=== PATIENT | female | born 1975 | race Caucasian/White ===

== ENCOUNTER → 2016-03-26 | Outpatient (CLI) | payer OTHER | LOC: YCFC.O 10:06 | PROVIDERS: ATTEND Nurse Practitioner Family | DX: R53.83 Other fatigue (principal); E78.2 Mixed hyperlipidemia; I10 Essential (primary) hypertension; E03.9 Hypothyroidism, unspecified; E66.9 Obesity, unspecified ==

== ENCOUNTER → 2016-05-04 | Outpatient (CLI) | payer OTHER | END | disposition home or self-care (01) | LOC: YCFC.O 08:14 | PROVIDERS: ATTEND Nurse Practitioner Family | DX: E03.9 Hypothyroidism, unspecified (principal) ==

== ENCOUNTER → 2016-09-12 | Outpatient (CLI) | payer OTHER ==
--- NOTE | 2016-09-13 08:13 | CT ---
EXAM DESCRIPTION: CT ABDOMEN AND PELVIS WITH CONTRAST CLINICAL HISTORY: LLQ PAIN COMPARISON: None Available. TECHNIQUE: CT of the abdomen and pelvis are performed during IV bolus administration of nonionic contrast. Oral contrast was not utilized. This exam was performed according to our departmental dose-optimization program, which includes automated exposure control, adjustment of the mA and/or kV according to patient size and/or use of iterative reconstruction technique. FINDINGS: The lung bases are clear. Overall image quality is significantly limited by the patient's large body habitus. Surgical clips on either side of the pelvis suggest previous hysterectomy and pelvic dissection. In the midline between the umbilicus and the symphysis suggesting fat-containing ventral hernia that has a small amount of soft tissue density at the anterior left aspect of the hernia that does not appear to represent bowel. A small seroma or hematoma would be a consideration. Small soft tissue mass is not completely excluded. Mesenteric inflammation surrounding the mid sigmoid colon consistent with a localized colitis or diverticulitis is suspected. This lies in the anterior mid left pelvis. This likely accounts for the patient's left lower quadrant pelvic pain. The upper abdomen demonstrates mild splenomegaly and normal-appearing liver with a normally distended gallbladder and normal biliary ductal system. The pancreas and adrenal glands are normal. The kidneys normally enhance and function without cyst or mass or obstruction retroperitoneum is unremarkable. No pelvic fluid collections within the hollow of the pelvic cavity is noted in the vaginal cuff and adnexal regions are unremarkable except for the left lower quadrant inflammatory changes associated with a short segment of left colon. Significant diverticulosis elsewhere within the colon is not apparent and distinct or definite diverticula at the level of inflammation is not apparent. A drainable fluid collection in the left lower quadrant is not apparent. The bony structures are unremarkable. IMPRESSION: 1. Localized mesenteric colic and pericolic inflammatory process in the left mid pelvis surrounding a short segment of thickened colon consistent with localized colitis or diverticulitis although very few diverticula are identified involving the left colon. A drainable fluid collection or abscess is not apparent. 2. Prior hysterectomy and apparent prior radical pelvic dissection without pelvic fluid collection or adnexal mass. 3. Fat-containing ventral hernia in the midline into the left of midline between the umbilicus and symphysis with either a small amount of loculated fluid or an associated soft tissue mass within or adjacent to the hernia sac that does not represent bowel. 4. Mild splenomegaly and clear lung bases. 5. No evidence of bowel obstruction or dilation proximal to the inflammatory changes or the hernia sac are noted. Electronically signed by: Dalton Mccartney MD 09/13/2016 8:12 AM CDT
== END | disposition home or self-care (01) ==
LOC: YCFC.O 10:04
PROVIDERS: ATTEND Nurse Practitioner Family
DX: R10.32 Left lower quadrant pain (principal)

== ENCOUNTER → 2016-09-20 | Outpatient (CLI) | payer OTHER ==
--- NOTE | 2016-09-20 13:33 | MAM ---
EXAM DESCRIPTION: 3D Screening BILATERAL CLINICAL HISTORY: 41 yearsFemaleSCREENING. Postmenopausal. No complaints.. COMPARISON: Baseline study at this facility. No prior reports available. TECHNIQUE: Bilateral CC and MLO projection full-field images, 3-D tomosynthesis digital mammographic technique. Also bilateral synthesized CC/ MLO full-field images. CAD not utilized. FINDINGS: The breast parenchymal density pattern is: Scattered areas of fibroglandular density. No skin thickening or nipple retraction . Approximately 3 well-circumscribed densities in the lateral middle third of the right breast approximately 3 cm from the skin surface. Same density as the surrounding fibroglandular tissues. Volume is approximately 11 x 9 x 7 mm. No associated calcifications. These are most likely cysts or intramammary lymph nodes. Skin calcifications on the medial right breast. Most likely cysts or intramammary lymph nodes. No focal, stellate mass or density, focal asymmetry , and no suspicious microcalcifications bilaterally. IMPRESSION: BI-RADS CATEGORY: 2 - BENIGN FINDINGS. FOLLOW UP: Routine digital bilateral screening, one year interval from September 2016. Written communication explaining the findings and follow-up, will be mailed to the patient and referring health care provider. According to the [employer], yearly mammograms are recommended starting at age 40 and continuing as long as a woman is in good health. Any breast change noted on a breast self-exam should be reported promptly to the patient's healthcare provider. Breast MRI is recommended for women with an approximately 20-25% or greater lifetime risk of breast cancer, including women with a strong family history of breast or ovarian cancer and women who have been treated for Hodgkin's disease. A negative mammographic report should not delay tissue diagnosis in patients with significant clinical history or physical findings. Extremely dense breast tissue limits the sensitivity of digital mammography. Electronically signed by: Oswaldo Bates MD 09/20/2016 1:32 PM CDT Workstation: [id number]
== END ==
LOC: MAMMO 08:00
PROVIDERS: ATTEND Nurse Practitioner Family
DX: Z12.31 Encounter for screening mammogram for malignant neoplasm of breast (principal)

== ENCOUNTER → 2017-06-09 | Outpatient (CLI) | payer OTHER | END | disposition home or self-care (01) | LOC: LAB.O 08:47 | PROVIDERS: ATTEND Nurse Practitioner Family | DX: E03.9 Hypothyroidism, unspecified (principal) ==

== ENCOUNTER → 2017-10-31 | Outpatient (CLI) | payer OTHER ==
--- NOTE | 2017-11-01 09:25 | MAM ---
EXAM DESCRIPTION: 3D Screening BILATERAL : Digital Mammography. CLINICAL HISTORY: 42 years Female ANNUAL SCREENING . No personal history or family history of breast cancer. Childbirth. Postmenopausal. No HRT. Lifetime risk of developing breast cancer (Tyrer-Cuzick model) is 9.7 %. COMPARISON: Bilateral screening digital breast tomosynthesis 09/20/2016.. TECHNIQUE: Bilateral CC and MLO projection full-field images, Digital tomosynthesis mammographic technique. Bilateral digital 2-D full-field MLO images. CAD not utilized. FINDINGS: The breast parenchymal density pattern is: Scattered areas of fibroglandular density. No skin thickening or nipple retraction. Again noted are intramammary nodules in the central right breast with a benign appearance. Right axillary lymph node No new focal, stellate mass or density, focal asymmetry , and no suspicious microcalcifications bilaterally. Stable mammograms compared to prior study. IMPRESSION: Benign exam BIRAD CATEGORY: 2 BENIGN FINDINGS RECOMMENDATIONS: FOLLOW UP: Routine digital bilateral screening, one year interval from October 2017. Written communication explaining the IMPRESSION and follow-up, will be mailed to the patient and referring health care provider. According to the [employer], yearly mammograms are recommended starting at age 40 and continuing as long as a woman is in good health. Any breast change noted on a breast self-exam should be reported promptly to the patient's healthcare provider. Breast MRI is recommended for women with an approximately 20-25% or greater lifetime risk of breast cancer, including women with a strong family history of breast or ovarian cancer and women who have been treated for Hodgkin's disease. A negative mammographic report should not delay tissue diagnosis in patients with significant clinical history or physical findings. Extremely dense breast tissue limits the sensitivity of digital mammography. Electronically signed by: Oswaldo Bates MD 11/01/2017 9:24 AM CDT
== END ==
LOC: MAMMO 08:00
PROVIDERS: ATTEND Nurse Practitioner Family
DX: Z12.31 Encounter for screening mammogram for malignant neoplasm of breast (principal)

== ENCOUNTER → 2018-04-24 | Outpatient (CLI) | payer OTHER | LOC: YCFC.O 08:08 | PROVIDERS: ATTEND Nurse Practitioner Family | DX: E03.9 Hypothyroidism, unspecified (principal) ==

== ENCOUNTER 2018-05-09 21:53 | Emergency (ER) | payer BC, OTHER ==
[2018-05-09 22:11] VITALS: TEMP 98.8; O2SAT 96
[2018-05-09] MEDS ORDERED: ENOXAPARIN SODIUM 100 MG/ML SYG SUBCU ONE (22:24)
--- NOTE | 2018-05-09 22:30 | ED.PDOC ---
History of Present Illness - General Chief Complaint: Lower Extremity Injury Stated Complaint: pain in left groin area Time Seen by Provider: 05/09/18 22:24 Source: patient Exam Limitations: no limitations - History of Present Illness Initial Comments: The patient is a 43-year-old female presenting to the emergency room secondary to left medial thigh pain starting about one day ago. No shortness of breath. She does not remember straining it or injuring it. It is not particularly worse with any movement. No visible skin changes and no swelling. She does have a history of having had a DVT and pulmonary embolus from the leg. That was many years ago however. She is not currently on any blood thinners. She is not . Timing/Duration: 24 hours Severity: moderate Improving Factors: nothing Worsening Factors: nothing Associated Symptoms: denies symptoms Allergies/Adverse Reactions: Allergies NO KNOWN ALLERGY Allergy (Unverified 01/13/14 15:54) Home Medications: Ambulatory Orders Codeine Sulfate 30 mg PO Q6HR #30 ml 01/13/14 Cyclobenzaprine Tab (ER Disp) [Flexeril Tab (ER Dispense)] 10 mg PO Q8HR #30 tab 01/13/14 Fluoxetine HCl [Prozac] 20 mg PO DAILY 01/13/14 Ibuprofen 600 mg PO Q6HR #30 tab 01/13/14 Levothyroxine Sodium [Synthroid] 0.088 mg PO DAILY 01/13/14 Review of Systems - Review of Systems Constitutional: States: no symptoms reported EENTM: States: no symptoms reported Respiratory: States: no symptoms reported Cardiology: States: no symptoms reported Gastrointestinal/Abdominal: States: no symptoms reported Genitourinary: States: no symptoms reported Musculoskeletal: States: see HPI Skin: States: no symptoms reported Neurological: States: no symptoms reported Endocrine: States: no symptoms reported All other Systems: No Change from Baseline Past Medical History (General) - Patient Medical History Hx Seizures: No Hx Dementia: No Hx Asthma: No Hx of COPD: No Hx Cardiac Disorders: No Hx Congestive Heart Failure: No Hx Pacemaker: No Hx Hypertension: No Hx Thyroid Disease: Yes Hx Diabetes: No Hx Gastroesophageal Reflux: No Hx Renal Disease: No Hx Cancer: No Hx Hepatitis C: No Surgical History: Hysterectomy, other - Vaccination History Hx Tetanus, Diphtheria Vaccination: No Hx Influenza Vaccination: Yes Hx Pneumococcal Vaccination: No - Social History Hx Tobacco Use: Yes Hx Alcohol Use: No Family Medical History - Family History Mother Living Status: Still Living Hx Family Hypertension: Yes Hx Cardiac Disease: Yes Physical Exam - Physical Exam General Appearance: Alert, Comfortable, No apparent distress Eye Exam: bilateral normal Ears, Nose, Throat: hearing grossly normal Neck: full range of motion Respiratory: no respiratory distress, no accessory muscle use Cardiovascular/Chest: no edema Peripheral Pulses: dorsalis pedis,left: 2+ Gastrointestinal/Abdominal: other - obese Rectal Exam: deferred Back Exam: normal inspection, no CVA tenderness Extremity: normal range of motion, normal inspection, no pedal edema, no calf tenderness, normal capillary refill, other - discomfort palpation to the medial thigh of the left leg Neurologic: shactor II-XII nml as tested, alert, normal mood/affect, oriented x 3 Skin Exam: normal color Comments: Vital Signs - 24 hr 05/09/18 22:06 Temperature 98.8 F Pulse Rate [ 85 left] Respiratory 18 Rate Blood Pressure 160/84 [left] O2 Sat by Pulse 96 Oximetry Progress - Progress Progress: 05/09/18 22:30 the patient is a 43-year-old female presenting to emergency room with left medial thigh pain of a fairly short duration. Given the history of the patient having had a distant DVT and pulmonary embolus, and the current lack of pulmonary symptoms or hypoxia, the patient is going to be treated with a dose of Lovenox here tonight. She is going to return in the morning for bilateral lower extremity venous Dopplers. ER warnings were given for any acute worsening. If she is to be continued on blood thinners long-term she will need to have lab work performed. Departure - Departure Clinical Impression: History of DVT in adulthood Leg pain, medial Qualifiers: Laterality: left Qualified Code(s): M79.605 - Pain in left leg Disposition: Discharge to Home or Self Care Condition: Fair Departure Forms: ED Discharge - Pt. Copy, Patient Portal Self Enrollment Diet: regular diet Activity: increase activity as tolerated Home Medications: Ambulatory Orders Codeine Sulfate 30 mg PO Q6HR #30 ml 01/13/14 Cyclobenzaprine Tab (ER Disp) [Flexeril Tab (ER Dispense)] 10 mg PO Q8HR #30 tab 01/13/14 Fluoxetine HCl [Prozac] 20 mg PO DAILY 01/13/14 Ibuprofen 600 mg PO Q6HR #30 tab 01/13/14 Levothyroxine Sodium [Synthroid] 0.088 mg PO DAILY 01/13/14 Additional Instructions: the patient is a 43-year-old female presenting to emergency room with left medial thigh pain of a fairly short duration. Given the history of the patient having had a distant DVT and pulmonary embolus, and the current lack of pulmonary symptoms or hypoxia, the patient is going to be treated with a dose of Lovenox here [facility]. She is going to return in the morning for bilateral lower extremity venous Dopplers. ER warnings were given for any acute worsening. If she is to be continued on blood thinners long-term she will need to have lab work performed.
[2018-05-09 22:45] VITALS: BP 168/100
== END 2018-05-09 22:45 | disposition home or self-care (01) ==
LOC: ER 21:53
DX: M79.652 Pain in left thigh (principal); E07.9 Disorder of thyroid, unspecified; Z86.718 Personal history of other venous thrombosis and embolism; Z86.711 Personal history of pulmonary embolism; Z87.891 Personal history of nicotine dependence

== ENCOUNTER → 2018-05-10 | Outpatient (CLI) | payer BC ==
--- NOTE | 2018-05-10 09:37 | US ---
EXAM DESCRIPTION: Venous,Lower Extremity LT: ULTRASOUND. CLINICAL HISTORY: M79.606 COMPARISON: Duplex ultrasound evaluation of the right lower extremity deep venous system. TECHNIQUE: Alves-scale and doppler sonographic evaluation of the deep venous system of the left lower extremity. FINDINGS: Doppler evaluation shows normal color flow and normal phasicity and augmentation of the left common femoral vein, femoral vein, popliteal vein, greater saphenous vein, peroneal, and posterior tibial vein. The left lower extremity deep veins were completely compressible; normal occlusion with transducer pressure. Alves-scale survey showed no echogenic thrombus within these veins. IMPRESSION: 1. Duplex ultrasound evaluation of the left lower extremity deep venous system showing no evidence of thrombosis. Electronically signed by: Oswaldo Bates MD 05/10/2018 9:34 AM NUCLEAR REACTOR ENGINEER
--- NOTE | 2018-05-10 09:43 | US ---
EXAM DESCRIPTION: Venous,Lower Extremity RT: ULTRASOUND. CLINICAL HISTORY: M79.606 COMPARISON: Duplex ultrasound evaluation of the left lower extremity deep venous system. TECHNIQUE: Alves-scale and doppler sonographic evaluation of the deep venous system of the right lower extremity. FINDINGS: Doppler evaluation shows normal color flow and normal phasicity and augmentation of the right common femoral vein, femoral vein, popliteal vein, greater saphenous vein, peroneal, and posterior tibial vein. The right lower extremity deep veins were completely compressible; normal occlusion with transducer pressure. Alves-scale survey showed no echogenic thrombus within these veins. IMPRESSION: 1. Duplex ultrasound evaluation of the right lower extremity deep venous system showing no evidence of thrombosis. Electronically signed by: Oswaldo Bates MD 05/10/2018 9:40 AM GREEN PROMOTIONS SPECIALIST
== END ==
LOC: US 08:13
PROVIDERS: ATTEND Family Medicine
DX: M79.605 Pain in left leg (principal); Z86.718 Personal history of other venous thrombosis and embolism

== ENCOUNTER → 2019-01-11 | Outpatient (CLI) | payer BC ==
--- NOTE | 2019-01-14 16:37 | MAM ---
EXAM DESCRIPTION: 3D Screening BILATERAL : Digital Mammography. CLINICAL HISTORY: 44 years Female ANNUAL SCREENING . No complaints. No personal or family history of breast cancer. Menarche age 12. Childbirth. Postmenopausal 10+ years. No HRT. Lifetime risk of developing breast cancer (Tyrer-Cuzick model)(%): 8.7. COMPARISON: Bilateral screening digital breast tomosynthesis 31 October 2017 and 20 September 2016 TECHNIQUE: Bilateral CC and MLO projection full-field images, digital tomosynthesis mammographic technique. Bilateral digital 2-D full-field MLO images. CAD not available for tomosynthesis or 2-D images. FINDINGS: The breast parenchymal density pattern is: Scattered areas of fibroglandular density. No skin thickening or nipple retraction. Stable nodules lateral mid right breast. Posterior right intramammary lymph node unchanged. Bilateral solitary microcalcifications. Stable nodular density mid left breast. Left breast axillary lymph nodes. No new focal, stellate mass or density, focal asymmetry , and no suspicious microcalcifications bilaterally. Stable mammograms compared to prior study. IMPRESSION: Benign exam. BIRAD CATEGORY: 2 BENIGN FINDINGS. RECOMMENDATIONS: FOLLOW UP: Routine digital bilateral mammographic screening, one year interval from January 2019. Written communication explaining the IMPRESSION and follow-up, will be mailed to the patient and referring health care provider. According to the [employer], yearly mammograms are recommended starting at age 40 and continuing as long as a woman is in good health. Any breast change noted on a breast self-exam should be reported promptly to the patient's healthcare provider. Breast MRI is recommended for women with an approximately 20-25% or greater lifetime risk of breast cancer, including women with a strong family history of breast or ovarian cancer and women who have been treated for Hodgkin's disease. A negative mammographic report should not delay tissue diagnosis in patients with significant clinical history or physical findings. Extremely dense breast tissue limits the sensitivity of digital mammography. Electronically signed by: Oswaldo Bates MD 01/14/2019 4:36 PM FOOD WRITER
== END ==
LOC: MAMMO 08:00
PROVIDERS: ATTEND Family Medicine
DX: Z12.31 Encounter for screening mammogram for malignant neoplasm of breast (principal)

== ENCOUNTER → 2019-03-07 | Outpatient (CLI) | payer OTHER | LOC: YCFC.O 16:52 | PROVIDERS: ATTEND Nurse Practitioner | DX: E03.9 Hypothyroidism, unspecified (principal) ==

== ENCOUNTER → 2019-04-24 | Outpatient (CLI) | payer OTHER | LOC: YCFC.O 14:29 | PROVIDERS: ATTEND Family Medicine | DX: E03.9 Hypothyroidism, unspecified (principal) ==

== ENCOUNTER → 2019-07-09 | Outpatient (CLI) | payer BC, OTHER | LOC: YCFC.O 09:57 | PROVIDERS: ATTEND Nurse Practitioner | DX: E03.9 Hypothyroidism, unspecified (principal) ==

== ENCOUNTER 2019-08-20 00:29 | Emergency (ER) | payer BC ==
--- NOTE | 2019-08-20 00:42 | ED.PDOC ---
History of Present Illness - General Chief Complaint: Chest Pain/[place] Time Seen by Provider: 08/20/19 00:39 Additional Information: Is a 44-year-old female, with history of thyroid disease presenting to the ER because of chest pressure with ideation to the right shoulder that around 5 PM. Patient denies any nausea vomiting or shortness of breath no dizziness lightheadedness no diaphoresis, patient is not had any high problems in the past no fever no chills no sick contacts no travels and no surgeryAnd did not think there was going to last since in the afternoon that it was going to go away on its own so she decided to come in and get herself checked - History of Present Illness Timing/Duration: 4-6 hours Severity/Quality: pressure Location: substernal, shoulder Chest Pain Radiation: shoulders Activities at Onset: none Prior Chest Pain/Cardiac Workup: no prior chest pain Improving Factors: nothing Worsening Factors: nothing Allergies/Adverse Reactions: Allergies NO KNOWN ALLERGY Allergy (Verified 08/20/19 01:01) Home Medications: Ambulatory Orders Levothyroxine Sodium [Synthroid] 25 mcg PO .QOD 08/20/19 Levothyroxine Sodium [Synthroid] 200 mcg PO QAM 08/20/19 Review of Systems - Review of Systems Constitutional: States: no symptoms reported EENTM: States: no symptoms reported Respiratory: States: no symptoms reported Cardiology: States: chest pain Gastrointestinal/Abdominal: States: no symptoms reported Genitourinary: States: no symptoms reported Musculoskeletal: States: no symptoms reported Skin: States: no symptoms reported Neurological: States: no symptoms reported Endocrine: States: no symptoms reported Hematologic/Lymphatic: States: no symptoms reported Past Medical History (General) - Patient Medical History Hx Seizures: No Hx Dementia: No Hx Asthma: No Hx of COPD: No Hx Cardiac Disorders: No Hx Congestive Heart Failure: No Hx Pacemaker: No Hx Hypertension: No Hx Thyroid Disease: Yes Hx Diabetes: No Hx Gastroesophageal Reflux: No Hx Renal Disease: No Hx Cancer: No Hx Hepatitis C: No - Vaccination History Hx Tetanus, Diphtheria Vaccination: No Hx Influenza Vaccination: Yes Hx Pneumococcal Vaccination: No - Social History Hx Tobacco Use: Yes Hx Alcohol Use: No Family Medical History - Family History Mother Living Status: Still Living Hx Family Hypertension: Yes Hx Cardiac Disease: Yes Physical Exam - Physical Exam General Appearance: Well Developed, Well Groomed, Well Hydrated, Well Nourished Eyes, Ears, Nose, Throat Exam: normal ENT inspection, TMs normal Neck: non-tender, full range of motion, supple, normal inspection Respiratory: chest non-tender, lungs clear, normal breath sounds, no respiratory distress, no accessory muscle use Cardiovascular/Chest: normal peripheral pulses, regular rate, rhythm, no edema, no gallop, no JVD Peripheral Pulses: radial,right: 2+, radial,left: 2+ Gastrointestinal/Abdominal: normal bowel sounds, non tender, soft, no organomegaly, no pulsatile mass Extremity: normal range of motion Neurologic: business attorney II-XII nml as tested, no motor/sensory deficits, alert, normal mood/affect, oriented x 3 Skin Exam: normal color Lymphatic: no adenopathy Progress - Progress Progress: 44-year-old female presents to the ER with chest pressure and radiation to the left shoulder, no nausea vomiting no shortness of breath no diaphoresis no dizziness patient does have a history of thyroid disease no history of heart artery disease, I did order cardiac work-up including D-dimers given that the p atient may not have high risk for pulmonary embolism but a sedentary lifestyle, patient CTA did not show evidence of PE, 2 sets troponins are negative, EKGs that did not show any evidence of acute ischemic changes, and TSH was elevated which suggest hypothyroidism so this is something that she will need to follow- up with her primary care physician, patient with a heart score of 2 We will discharge home with follow-up with consumer banker, and instructions to return to the ER immediately if there is any chest pressure, nausea, medical shortness of breath dizziness lightheadedness sensation of fainting digitization the chest without reaction to the left arm right arm both arms neck back or jaw excessive sweating or other concern 08/20/19 03:14 Departure - Departure Clinical Impression: Chest pain Qualifiers: Chest pain type: unspecified Qualified Code(s): R07.9 - Chest pain, unspecified Disposition: Discharge to Home or Self Care Departure Forms: ED Discharge - Pt. Copy, Patient Portal Self Enrollment Instructions: DI for Chest Pain Diet: resume usual diet Referrals: Karine Bravo FNP [Primary Care Provider] - 1-2 Weeks Home Medications: Ambulatory Orders Levothyroxine Sodium [Synthroid] 25 mcg PO .QOD 08/20/19 Levothyroxine Sodium [Synthroid] 200 mcg PO QAM 08/20/19 Additional Instructions: return to the ER immediately if there is any chest pressure, nausea, medical shortness of breath dizziness lightheadedness sensation of fainting digitization the chest without reaction to the left arm right arm both arms neck back or jaw excessive sweating or other concern
[2019-08-20 01:01] VITALS: TEMP 97.9
--- NOTE | 2019-08-20 01:11 | RAD ---
EXAM DESCRIPTION: Chest,1 View CLINICAL HISTORY: 44 years Female, chest pain COMPARISON: None TECHNIQUE: Single AP chest radiograph. FINDINGS: Clear lungs. No pneumothorax or pleural effusion. Normal cardiomediastinal contour. Normal osseous structures. IMPRESSION: 1. No acute cardiopulmonary process. Electronically signed by: Arash Matias MD 08/20/2019 1:10 AM CDT
[2019-08-20] MEDS: ASPIRIN TABLET 325 MG TAB PO ONE (01:14)
--- NOTE | 2019-08-20 02:23 | CT ---
EXAM: CTA Chest HISTORY: rule out pe , Lt Chest wall pain radiating to shoulder, elev D Dimer, hx of PE in the past COMPARISON: Chest one view 08/20/2019 at 12:49 AM TECHNIQUE: Chest CTA axial images acquired with IV contrast. Coronal and sagittal CTA MIPs and MPRs created. Exam performed according to departmental dose-optimization program which includes automated exposure control, adjustment of mA and/or kV according to patient size, and/or use of iterative reconstruction technique. FINDINGS: Inferior-most bilateral lung bases not imaged. Heart size normal. No pericardial effusion. Thoracic aorta unremarkable without evidence of dissection, aneurysm, or atherosclerotic plaque. Limited evaluation for pulmonary embolism due to suboptimal contrast opacification of pulmonary arteries. No pleural effusion or pneumothorax. Central tracheobronchial tree unremarkable. Minimal scattered bilateral lung atelectasis and/or scar. No lung mass, consolidation, or pulmonary edema. Moderate thoracic spine degenerative disease. IMPRESSION: 1. Limited evaluation for pulmonary embolism due to suboptimal contrast opacification of pulmonary arteries. 2. Minimal scattered bilateral lung atelectasis and/or scar. Electronically signed by: Daniel Marrero MD 08/20/2019 2:22 AM CDT
[2019-08-20 03:24] VITALS: BP 141/88; O2SAT 94
== END 2019-08-20 03:25 | disposition home or self-care (01) ==
LOC: ER 00:29
DX: R07.9 Chest pain, unspecified (principal); E03.9 Hypothyroidism, unspecified; F17.200 Nicotine dependence, unspecified, uncomplicated; Z79.899 Other long term (current) drug therapy

== ENCOUNTER → 2019-08-28 | Outpatient (CLI) | payer BC ==
--- NOTE | 2019-08-29 10:08 | US ---
US THYROID CLINICAL STATEMENT:44 years Female hypothyroidism. No prior thyroid surgery or medication. No palpable mass. COMPARISON: None TECHNIQUE: Transcutaneous scanning, grayscale and Doppler modes. FINDINGS: Size right thyroid lobe: 4.7 x 2.0 x 1.4 cm. Heterogeneous Size left thyroid lobe: 4.7 x 1.6 x 1.5 cm. Heterogeneous Size isthmus: 0.65 cm Estimated total number of nodules greater than or equal to 1 cm: 3. No distinct cyst, no large calcifications, no fluid collection. Overlying skin is unremarkable. Nodule 1: Size: 1.9 x 1.2 x 1.1 cm Location: Right Mid Composition: solid or almost completely solid: 2 points Echogenicity: hypoechoic: 2 points Shape: wider than tall: 0 points Margins: smooth: 0 points Echogenic foci: none: 0 points ACR Total Points: 4; ACR TI-RADS risk category: TR4 - moderately suspicious nodule. Nodule 2: Size: 1.4 x 1.4 x 0.8 cm Location: Isthmus right Composition: solid or almost completely solid: 2 points Echogenicity: hypoechoic: 2 points Shape: wider than tall: 0 points Margins: smooth: 0 points Echogenic foci: none: 0 points ACR Total Points: 4; ACR TI-RADS risk category: TR4 - moderately suspicious nodule. Nodule 3: Size: 1.1 x 0.6 X 0.5 cm Location: Left Mid Composition: solid or almost completely solid: 2 points Echogenicity: hypoechoic: 2 points centrally echogenic. Shape: wider than tall: 0 points Margins: smooth: 0 points Echogenic foci: None. ACR Total Points: 4; ACR TI-RADS risk category: TR4 - moderately suspicious nodule. Soft tissue around the thyroid gland is unremarkable. IMPRESSION: 1. Nodule 1: ACR TI-RADS 2017 Category TR4. Recommend: Ultrasound-guided fine needle aspiration. Recommendations based upon [facility] Best Practice recommendations and ACR TI-RADS 2017 guidelines. Please see below*. 2. Nodule 2: ACR TI-RADS 2017 Category TR4. Recommend: Follow-up ultrasound in 1 year. 3. Nodule 3: ACR TI-RADS 2017 Category TR4. Recommend: Follow-up ultrasound in 1 year. 4. Soft tissue within the thyroid gland is unremarkable. *ACR TI-RADS 2017 Recommendations for imaging follow-up of nodules: TR1: No FNA or follow up TR2: No FNA or follow up TR3: FNA if >/= 2.5 cm, follow up if 1.5 - 2.4 cm in 1, 3, and 5 years TR4: FNA if >/= 1.5 cm, follow up if 1.0 - 1.4 cm in 1, 2, 3, and 5 years TR5: FNA if >/= 1.0 cm, follow up if 0.5 - 0.9 cm every year for 5 years ACR TI-RADS recommends that no more than two nodules with the highest ACR TI-RADS total point should be biopsied and no more than four nodules should be followed. These recommendations do not apply to patients with increased risk for thyroid cancer or patients with symptomatic thyroid disease. Electronically signed by: Oswaldo Bates MD 08/29/2019 10:07 AM CDT
== END ==
LOC: RESP 11:00
PROVIDERS: ATTEND Family Medicine
DX: E03.9 Hypothyroidism, unspecified (principal); E04.2 Nontoxic multinodular goiter; R00.2 Palpitations

== ENCOUNTER → 2019-09-09 | Outpatient (CLI) | payer BC ==
--- NOTE | 2019-09-09 10:52 | CT ---
EXAM DESCRIPTION: Abdomen/Pelvis w/Contrast CLINICAL HISTORY: 44 years Female, UNSPECIFIED ABDOMINAL PAIN COMPARISON: CT abdomen and pelvis 09/12/2016 TECHNIQUE: CT of the abdomen and pelvis acquired with IV contrast material. Coronal and sagittal reformations provided. This exam was performed according to our departmental dose-optimization program, which includes automated exposure control, adjustment of the mA and/or kV according to patient size and/or use of iterative reconstruction technique. FINDINGS: Lung bases: Clear. Solid Organs: Relative hypoattenuation of the liver parenchyma. Liver is enlarged measuring up to 19.3 cm the midclavicular line. Unremarkable appearing spleen, pancreas, gallbladder without biliary ductal dilatation, adrenal glands. Normal-appearing kidneys. GI tract: Normal stomach. No small bowel obstruction. There is mucosal thickening and luminal narrowing of the sigmoid colon with surrounding fat stranding. Mild stool in the more proximal colon. Normal appendix. Vascular: Mild atherosclerosis. Musculoskeletal and soft tissues: No acute fracture or aggressive appearing osseous lesion. Small fat-containing umbilical hernia. Small fat-containing hernia containing fluid in the left para midline infraumbilical ventral abdominal wall measuring up to 4.4 cm. Urinary bladder: Decompressed. Uterus and adnexa: Uterus surgically absent. Other: There is ill-defined fluid collection containing foci of air and moderate surrounding inflammation in the lower abdomen/upper pelvis centrally measuring approximately 4.8 cm AP, 2.9 cm transverse, 6.2 cm CC. IMPRESSION: 1. Sigmoid diverticulitis with developing fluid collection/abscess superiorly as described above. No drainable fluid collection at this time. 2. Other findings as above. Electronically signed by: Yonas Monteiro MD 09/09/2019 10:51 AM CDT
== END ==
LOC: YCFC.O 09:32
PROVIDERS: ATTEND Family Medicine
DX: K57.20 Diverticulitis of large intestine with perforation and abscess without bleeding (principal); I70.90 Unspecified atherosclerosis; R16.0 Hepatomegaly, not elsewhere classified; K43.9 Ventral hernia without obstruction or gangrene; K42.9 Umbilical hernia without obstruction or gangrene; Z90.710 Acquired absence of both cervix and uterus

== ENCOUNTER → 2019-09-12 | Outpatient (CLI) | payer BC ==
--- NOTE | 2019-09-12 13:50 | US ---
Thyroid Biopsy, Image-Guided: Biopsy of Thyroid: Ultrasound CLINICAL INFORMATION: 44 years Female. Hypothyroid. Previous thyroid surgery. COMPARISON: Prior thyroid ultrasound on August 27.. TECHNIQUE: Procedure was performed by Dr. Bates. Timeout was performed with patient identifying name, date of , procedure, and side of biopsy to be performed. Explained to the patient with risks and benefits. The patient gave verbal and written consent. Sterile preparation draping. 1% xylocaine dermal anesthetic 9-1 mixture with sodium bicarbonate. Sterile ultrasound guidance. A total of 6 passes posterior right thyroid nodule.; 2 needle samplings with a separate 1.5 inch, 25-gauge needle per sample, and 4 aspirations, with a separate 1.5 inch, 25-gauge needle/10-cc syringe set, per aspiration. Each sample was placed on a separate slide and fixed in 95% alcohol container. 2 aspirated samples were also placed on a separate slide with fixation. Final 2 aspirations were placed into Saccomanno fluid drawn into aspirate needle and rinse injected into Saccomanno container. Specimens to be sent for pathologic examination at remote facility. . Patient tolerated procedure well. Biopsy #: 1 Nodule reference number based on prior diagnostic ultrasound:1 Maximum size: 1.9 cm Location: right; mid ACR TI-RADS risk category: TR4 (4-6 points) Reason for biopsy: meets ACR TI-RADS criteria Complications: None. FINDINGS: Multiple images demonstrate the echogenic needle within the right thyroid solid nodule/mass during sampling and aspirations. IMPRESSION: Successful ultrasound guided fine needle aspiration of right thyroid nodule, by Dr. Bates. ACR TI-RADS Risk Category TR 4 Electronically signed by: Oswaldo Bates MD 09/12/2019 1:49 PM CDT
== END ==
LOC: LAB.O 09:14
PROVIDERS: ATTEND Family Medicine
DX: I49.3 Ventricular premature depolarization (principal); I34.0 Nonrheumatic mitral (valve) insufficiency; I36.1 Nonrheumatic tricuspid (valve) insufficiency; I51.7 Cardiomegaly; E04.1 Nontoxic single thyroid nodule; K57.32 Diverticulitis of large intestine without perforation or abscess without bleeding

== ENCOUNTER → 2019-10-15 | Outpatient (CLI) | payer BC | LOC: LAB.O 14:37 | PROVIDERS: ATTEND Internal Medicine Endocrinology, Diabetes & Metabolism | DX: E03.9 Hypothyroidism, unspecified (principal); E04.2 Nontoxic multinodular goiter ==

== ENCOUNTER → 2019-12-09 | Outpatient (CLI) | payer BC ==
--- NOTE | 2019-12-09 14:02 | RAD ---
EXAM DESCRIPTION: Ribs,Left 3 Views CLINICAL HISTORY: PLEURODYNIA COMPARISON: 08/20/2019. TECHNIQUE: Frontal view of the chest and three views of the left ribs. FINDINGS: No acute displaced left rib fracture or dislocation. The lungs are hypoinflated with mild vascular crowding. No focal consolidation, pleural effusion, or pneumothorax. The heart is at the upper limits of normal in size. IMPRESSION: 1. No acute displaced left rib fracture. Electronically signed by: Best Espinoza DO 12/09/2019 1:59 PM CDT
--- NOTE | 2019-12-09 14:06 | RAD ---
EXAM DESCRIPTION: Scapula,Left CLINICAL HISTORY: 44 years Female, PAIN IN UNSPEC. SHOULDER COMPARISON: None. TECHNIQUE: Two views of the left scapula were obtained. FINDINGS/IMPRESSION: Images of the left scapula demonstrate no acute displaced fracture or dislocation. No radiopaque retained foreign body. Moderate left acromioclavicular joint osteoarthrosis is present with joint space narrowing and marginal osteophytosis. The bone mineralization is preserved. Electronically signed by: Best Espinoza DO 12/09/2019 2:03 PM CDT
== END ==
LOC: YCFC.O 09:56
PROVIDERS: ATTEND Nurse Practitioner
DX: R07.81 Pleurodynia (principal); M19.012 Primary osteoarthritis, left shoulder; M25.712 Osteophyte, left shoulder

== ENCOUNTER → 2020-01-23 | Outpatient (CLI) | payer BC ==
--- NOTE | 2020-01-23 11:26 | US ---
EXAM DESCRIPTION: Gall Bladder: ULTRASOUND. CLINICAL HISTORY: ABD PAIN COMPARISON: CT scan of abdomen and pelvis September 08. TECHNIQUE: Transabdominal scanning: Alves-scale and Doppler modes. Technically difficult study due to patient large body habitus. FINDINGS: Gallbladder: normal size, shape, echogenicity; no intraluminal stones or sludge. No fluid around the gallbladder. No wall thickening. 2.1 mm. Non-tender with transducer pressure. Common bile duct: caliber 5.0 mm within normal limits. Liver: Increased echogenicity; contour liver capsule smooth where seen. No fluid around the liver. Intrahepatic biliary ducts normal caliber. Doppler hepatopedal flow portal vein.. 13 mm caliber slightly enlarged. Long axis right lobe 22 cm. Pancreas: normal size Normal echogenicity. Duct not seen. Aorta: 2.1 cm normal caliber. Right kidney: long axis is text; volume 11.9 cm. Normal cortical thickness and echogenicity. No echogenic stones and no hydronephrosis.. IMPRESSION: 1. Moderate enlargement of the liver with steatosis. Stable compared to the prior CT scan. Physiologic ducts and vascularity. Smooth capsule with no ascites. Pancreas is negative. 2. Unremarkable right kidney and aorta. 3. Negative findings in the gallbladder and common bile duct. Electronically signed by: Oswaldo Bates MD 01/23/2020 11:25 AM [employer]
== END ==
LOC: US 07:57
PROVIDERS: ATTEND Surgery
DX: K76.0 Fatty (change of) liver, not elsewhere classified (principal); R10.9 Unspecified abdominal pain

== ENCOUNTER → 2020-02-14 | Outpatient (CLI) | payer BC | LOC: LAB.O 11:30 | PROVIDERS: ATTEND Obstetrics & Gynecology | DX: Z01.812 Encounter for preprocedural laboratory examination (principal) ==

== ENCOUNTER 2020-02-15 01:54 | Emergency (ER) | payer BC ==
[2020-02-15 02:16] VITALS: TEMP 97.2
[2020-02-15] MEDS ORDERED: ALUM & MAG HYDROX-SIMETHICONE 30 ML, LIDOCAINE VISCOUS 2% 15 ML PO ONE ×2 (02:27)
[2020-02-15] MEDS ORDERED: ONDANSETRON INJ 4 MG/2 ML VIAL IV ONE (02:39)
[2020-02-15] MEDS ORDERED: SODIUM CHLORIDE 0.9% (FLUSH) 10 ML SYG IV PRN (02:39)
--- NOTE | 2020-02-15 02:52 | ED.PDOC ---
History of Present Illness - General Chief Complaint: Abdominal Pain Stated Complaint: abdominal pain Time Seen by Provider: 02/15/20 02:39 Information Source: patient, RN notes reviewed, Vital Signs reviewed Exam Limitations: no limitations - History of Present Illness Initial Comments: Patient is a 45-year-old white female who presents with complaints of abdominal pain. Patient had eaten dinner around 8 PM, then was at [facility] and felt an acute onset of cramping epigastric pain. This pain radiated bilaterally to her sides as well as up into her chest and down into her stomach. It was waxing and waning in nature it was severe in intensity and it caused her nausea. She vomited once. Patient presents to the ED out of concern for the pain and vomiting. Patient had a full cardiac work-up and stress test approximately 2 months ago. All of her testing was normal. Patient denies any additional unusual stressors in her life though she does have a lot of stress due to the fact that her has significant medical problems. Abdominal Pain Onset Location: epigastric Pain Radiation: RUQ, LUQ, other - abdomine Quality: severe, aching, cramping Timing/Duration: 4-6 hours Improving Factors: nothing Worsening Factors: eating Associated Symptoms: chest pain, nausea/vomiting Review of Systems - Review of Systems Constitutional: States: no symptoms reported, see HPI. Denies: chills, fever, malaise, weakness EENTM: States: no symptoms reported Respiratory: States: no symptoms reported. Denies: cough, orthopnea, short of breath, stridor, wheezing Cardiology: States: see HPI, chest pain. Denies: palpitations, syncope Gastrointestinal/Abdominal: States: see HPI, abdominal pain, nausea, vomiting. Denies: constipation, diarrhea Genitourinary: States: no symptoms reported. Denies: dysuria, frequency Musculoskeletal: States: no symptoms reported. Denies: back pain, joint pain, neck pain Skin: States: no symptoms reported. Denies: change in color, rash Neurological: States: no symptoms reported. Denies: tingling, tremors, weakness Endocrine: States: no symptoms reported. Denies: increased hunger, increased thirst, increased urine Hematologic/Lymphatic: States: no symptoms reported. Denies: blood clots, easy bleeding All other Systems: Reviewed and Negative Past Medical History (General) - Patient Medical History Hx Seizures: No Hx Stroke: No Hx Dementia: No Hx Asthma: No Hx of COPD: No Hx Cardiac Disorders: No Hx Congestive Heart Failure: No Hx Pacemaker: No Hx Hypertension: No Hx Thyroid Disease: Yes Hx Diabetes: No Hx Gastroesophageal Reflux: No Hx Renal Disease: No Hx Cancer: No Hx of HIV: No Hx Hepatitis C: No Hx MRSA: No Surgical History: Hysterectomy, other - Vaccination History Hx Tetanus, Diphtheria Vaccination: No Hx Influenza Vaccination: Yes Hx Pneumococcal Vaccination: No - Social History Hx Tobacco Use: Yes - Half a pack a day Hx Chewing Tobacco Use: No Hx Alcohol Use: No Hx Substance Use: No Hx Substance Use Treatment: No Hx Depression: No Feels Threatened In Home Enviroment: No Feels Threatened In a Relationship: No Hx Physical Abuse: No Hx Emotional Abuse: No Hx Suspected Abuse: No - Female History Patient is a Female of Child Bearing Age (10 -59 yrs old): No Patient : No - Triage Comment ED Triage Comment: The patient was alert and oriented times 4 and walked into ER room 4 and placed in bed. She complained of medial upper abdominal pain discribed as severe cramping. She stated that the pain radiated to the left and right upper quadrant and down the medial line to the lower quadrants. She denied nausea at the time of assessment but had thrown up one time. She denied chest pain and shortness of breath and had no back, arm or jaw pain noted. She had no other noted complaints at the time of contact. Family Medical History - Family History Mother Living Status: Still Living Hx Family Hypertension: Yes Hx Cardiac Disease: Yes Physical Exam - Physical Exam General Appearance: Alert, Anxious, Obese, Well Developed, Well Groomed, Well Hydrated, Well Nourished Eyes, Ears, Nose, Throat Exam: PERRL/EOMI, normal ENT inspection, pharynx normal Neck: non-tender, full range of motion, supple, normal inspection Respiratory: chest non-tender, lungs clear, normal breath sounds, no respiratory distress, no accessory muscle use Cardiovascular/Chest: normal peripheral pulses, regular rate, rhythm, no edema, no gallop, no JVD, no murmur Peripheral Pulses: No deficit Gastrointestinal/Abdominal: normal bowel sounds, soft, tenderness - epigastric Back Exam: no CVA tenderness, no vertebral tenderness Extremity: normal range of motion, non-tender Neurologic: pacu rn II-XII nml as tested, no motor/sensory deficits, alert, normal mood/affect, oriented x 3 Skin Exam: normal color, warm/dry Lymphatic: no adenopathy Progress - Progress Progress: Differential diagnosis: Acute TX, GERD, bowel obstruction, asthma among others. 02/15/20 03:37 Patient symptoms completely resolved after the GI cocktail. Lab work is normal. I will start patient on omeprazole. I discussed this with patient and follow- up with her PCP in approximately 5 days. She voices understanding and agreement with plan of care. Wilman Gibson M.D. #[id number] - Results/Orders Results/Orders: 02/15/20 02:30 EKG STAT 02/15/20 02:39 Sodium Chloride 0.9% (Flush) [Saline Flush Syringe] 10 ml IV PRN PRN EKG performed 15 February 2020 at 0218 hrs.: Normal sinus rhythm at 89 bpm, normal axis deviation, no ST or T wave changes concerning for ischemia, normal EKG. No previous EKG available at this time. Laboratory Results - last 24 hr 02/15/20 02/15/20 02:30 02:30 WBC 11.0 H RBC 5.36 Hgb 14.9 Hct 44.1 MCV 82.3 MCH 27.9 MCHC 33.9 RDW 16.5 H Plt Count 203 MPV 9.7 Absolute Neuts (auto) 8.20 H Absolute Lymphs (auto) 1.80 Absolute Monos (auto) 0.70 Absolute Eos (auto) 0.30 Absolute Basos (auto) 0.10 Neutrophils % 74.4 Lymphocytes % 16.3 L Monocytes % 6.2 Eosinophils % 2.5 Basophils % 0.6 Sodium 141 Potassium 4.0 Chloride 102 Carbon Dioxide 29 Anion Gap 14.0 BUN 19 H Creatinine 0.61 BUN/Creatinine Ratio 31.1 H Random Glucose 123 H Serum Osmolality 284.9 Calcium 9.1 Total Bilirubin 0.5 Direct Bilirubin 0.1 Indirect Bilirubin 0.4 AST 16 ALT 15 Alkaline Phosphatase 66 Serum Total Protein 7.5 Albumin 4.0 Lipase 22 Vital Signs 02/15/20 02/15/20 02/15/20 01:58 02:04 02:54 Temperature 97.2 F L Pulse Rate [ 92 H 92 H 80 Pulse Ox] Respiratory 16 16 14 Rate Blood Pressure 158/110 149/91 [Left Arm] O2 Sat by Pulse 97 95 Oximetry 02/15/20 03:00 Temperature Pulse Rate [ 93 H Pulse Ox] Respiratory 14 Rate Blood Pressure 149/91 [Left Arm] O2 Sat by Pulse 95 Oximetry - EKG/XRAY/CT CT Ordered: No Departure - Departure Clinical Impression: GERD (gastroesophageal reflux disease) Qualifiers: Esophagitis presence: esophagitis presence not specified Qualified Code(s): K21.9 - Gastro-esophageal reflux disease without esophagitis Abdominal pain Qualifiers: Abdominal location: epigastric Qualified Code(s): R10.13 - Epigastric pain Time of Disposition: 03:39 Disposition: Discharge to Home or Self Care Condition: Good Departure Forms: ED Discharge - Pt. Copy, Patient Portal Self Enrollment Instructions: DI for Abdominal Pain-Adult, Acid Reflux and GERD in Adults (DC), Acute Abdomen (Belly Pain), Adult (DC) Diet: bland diet Activity: increase activity as tolerated Referrals: Karine Bravo FNP [Primary Care Provider] - 1-5 Days Prescriptions: Omeprazole [Prilosec Cap] 20 mg PO ACBK #30 cap Home Medications: Ambulatory Orders Levothyroxine Sodium [Synthroid] 25 mcg PO .QOD 08/20/19 Levothyroxine Sodium [Synthroid] 200 mcg PO QAM 08/20/19 Omeprazole [Prilosec Cap] 20 mg PO ACBK #30 cap 02/15/20
--- NOTE | 2020-02-15 02:56 | RAD ---
EXAM DESCRIPTION: Chest,1 View CLINICAL HISTORY:45 years Female, epigastric pain Comparison: Chest radiograph dated 12/09/2019 FINDINGS: No focal lung consolidation. No pleural effusion. No pneumothorax. Cardiomediastinal silhouette is unchanged. No acute osseous abnormality. IMPRESSION: No acute cardiopulmonary disease. Electronically signed by: Everton Whaley DO 02/15/2020 2:54 AM [employer]
[2020-02-15 03:45] VITALS: BP 146/82; O2SAT 96
== END 2020-02-15 03:45 | disposition home or self-care (01) ==
LOC: ER 01:54
DX: K21.9 Gastro-esophageal reflux disease without esophagitis (principal); R10.13 Epigastric pain; R11.2 Nausea with vomiting, unspecified; R07.9 Chest pain, unspecified; E66.9 Obesity, unspecified; E07.9 Disorder of thyroid, unspecified; Z68.44 Body mass index [BMI] 60.0-69.9, adult; Z87.891 Personal history of nicotine dependence
CPT/HCPCS: 71045; 80048; 80076; 83690; 85025; 93005; A4216; J2405

== ENCOUNTER → 2020-02-24 | Outpatient (CLI) | payer BC ==
--- NOTE | 2020-02-24 12:21 | NM ---
EXAM DESCRIPTION: Hepatobiliar w/CCK: Nuclear Medicine. CLINICAL HISTORY: unspecified abdominal pain COMPARISON: Gallbladder ultrasound January 22. TECHNIQUE: Patient was given 8.4 mCi of technetium 99 M mebrofenin (Choletec) radiopharmaceutical IV. Anterior gamma camera images were obtained of the right upper quadrant at 1 minute intervals for 1 hour . The patient was then given 3.2 mcg CCK IV infusion over 30-minute interval. Gallbladder ejection fraction was evaluated by measuring change in radioactivity in the gallbladder, over 30 min interval. FINDINGS: Almost immediate visualization of the liver parenchyma after administration of the radiopharmaceutical. No focal regions of increased or decreased activity. Almost immediately visualization of intrahepatic biliary ducts, with extrahepatic biliary ducts visualized at approximately 5 minutes after administration of radiopharmaceutical. Gallbladder activity not visualized until 20 minutes after radiopharmaceutical administration. After infusion of CCK began, there were no symptoms reproduced. 10 minutes after infusion began, gallbladder activity was reduced 21% 54% reduction after 20 minutes and 48% reduction after 30 minutes. IMPRESSION: 1. No intrahepatic or extrahepatic biliary obstruction. Delayed visualization of the gallbladder. 2. Gallbladder ejection fraction was 48-54% over 20 to 30 minute interval after CCK administration which is within the normal range. Gallbladder dyskinesia or chronic cholecystitis is unlikely. Electronically signed by: Oswaldo Bates MD 02/24/2020 12:20 PM [facility]
== END ==
LOC: NM 09:00
PROVIDERS: ATTEND Surgery
DX: R10.9 Unspecified abdominal pain (principal)
CPT/HCPCS: 78227; A9537

== ENCOUNTER → 2020-04-14 | Outpatient (CLI) | payer BC | LOC: LAB.O 09:01 | PROVIDERS: ATTEND Internal Medicine Endocrinology, Diabetes & Metabolism | DX: E03.9 Hypothyroidism, unspecified (principal) ==